=== PATIENT | male | born 1950 | race American Indian/Alaskan Native ===

== ENCOUNTER 2020-10-06 18:10 | Emergency (ER) | payer MEDICARE, OTHER ==
[2020-10-06 19:13] VITALS: BP 191/101
== END 2020-10-06 22:36 | disposition left against medical advice (07) ==
LOC: ED 18:10
DX: Z04.1 Encounter for examination and observation following transport accident (principal); Z53.21 Procedure and treatment not carried out due to patient leaving prior to being seen by health care provider